=== PATIENT | female | born 2000 | race Caucasian/White ===

== ENCOUNTER 2020-01-04 09:48 | Emergency (ER) | payer OTHER ==
[~2020-01-04] VITALS: Ht 170.2 cm; Wt 68.0 kg
[2020-01-04] MEDS ORDERED: ZITHROMAX TRI-500 MG PO (11:10)
== END 2020-01-04 11:15 | disposition home or self-care (01) ==
LOC: ER 09:48
DX: J31.2 Chronic pharyngitis (principal)